=== PATIENT | male | born 1950 | race Hispanic/Latino ===

== ENCOUNTER 2016-11-28 14:48 | Emergency (ER) | payer BC, OTHER ==
[2016-11-28 15:06] VITALS: RESP 18; O2SAT 97
[2016-11-28] MEDS ORDERED: Sodium Chloride 0.9% 1,000 ML IV ONE (15:25)
[2016-11-28] MEDS ORDERED: Sodium Chloride 0.9% 1,000 ML ONE (15:36)
[2016-11-28 15:56] LABS: BASO # 0.1 K/uL (0.0-0.2); BASO % 0.8 % (0.0-2.0); EOS # 0.1 K/uL (0.0-0.7); EOS % 1.1 % (0.0-4.0); HEMATOCRIT 43.4 % (35.0-51.0); LYMPH # 2.1 K/uL (1.0-4.3); LYMPH % 29.4 % (20.0-40.0); MEAN CORPUSCULAR HEMOGLOBIN 30.2 pg (27.0-31.0); MEAN CORPUSCULAR HGB CONC 33.5 g/dL (33.0-37.0); MEAN PLATELET VOLUME 8.7 fL (7.2-11.7); MONO # 0.4 K/uL (0.0-0.8); MONO % 5.8 % (0.0-10.0); RED CELL DISTRIBUTION WIDTH 13.5 % (11.5-14.5); WHITE BLOOD COUNT 7.1 K/uL (4.8-10.8)
[2016-11-28 16:02] LABS: CHLORIDE 99 mmol/L (98-107); POTASSIUM 3.8 mmol/L (3.6-5.2); SODIUM 138 mmol/L (132-148)
[2016-11-28 16:04] LABS: ALB/GLOB RATIO 1.6 (1.0-2.1); AST/SGOT 27 U/L (17-59); BILIRUBIN,TOTAL 0.8 mg/dL (0.2-1.3); BLOOD UREA NITROGEN 9 mg/dL (9-20); CARBON DIOXIDE 23 mmol/L (22-30); GFR AFRICAN-AMERICAN > 60; TOTAL PROTEIN 7.3 g/dL (6.3-8.3)
[2016-11-28 16:05] LABS: ALKALINE PHOSPHATASE 61 U/L (38-126); ALT/SGPT 35 U/L (21-72); CALCIUM 9.2 mg/dl (8.6-10.4); GLUCOSE,RANDOM 95 mg/dL (75-110)
[2016-11-28 16:06] LABS: URINE BILIRUBIN NEGATIVE (NEGATIVE); URINE BLOOD NEGATIVE (NEGATIVE); URINE COLOR Straw (YELLOW); URINE GLUCOSE (UA) NORMAL (Normal); URINE KETONE NEGATIVE (NEGATIVE); URINE LEUKOCYTE ESTERASE NEG Leu/uL (Negative); URINE PROTEIN NEGATIVE (NEGATIVE); URINE UROBILINOGEN NORMAL mg/dL (0.2-1.0)
--- NOTE | 2016-11-28 16:06 | C.PDOC ---
History Of Present Illness 66-year-old male, PMHx includes Renal stones and BPH, presents to the emergency department with complaints of left sided flank pain, that radiates to the right abdomen for 1 week. Patent states he was seen in office by Dr Barajas, who did an ultrasound, and confirmed a kidney stone. States he had an X-ray as well, for which he was going to follow up with Dr Barajas in office next week. Patient reports that pain worsened resulting in him coming to the ED for further evaluation. Denies nausea/vomiting, diarrhea, dizziness, fevers, chills , shortness of breath, chest pain, or any other associated symptoms. No other complaints at this time. Time Seen by Provider: 11/28/16 15:16 Chief Complaint (Nursing): Male Genitourinary History Per: Patient History/Exam Limitations: no limitations Onset/Duration Of Symptoms: Days Current Symptoms Are (Timing): Still Present Past Medical History Reviewed: Historical Data, Nursing Documentation, Vital Signs Vital Signs: Last Vital Signs Temp 97.7 F 11/28/16 19:31 Pulse 62 11/28/16 19:31 Resp 18 11/28/16 19:31 BP 128/82 11/28/16 19:31 Pulse Ox 97 11/28/16 19:31 - Medical History PMH: Benign Prostatic Hyperplasia, Kidney Stones Family History: States: Unknown Family Hx - Social History Hx Tobacco Use: No Hx Alcohol Use: No Hx Substance Use: No - Immunization History Hx Tetanus Toxoid Vaccination: Yes Hx Influenza Vaccination: Yes Hx Pneumococcal Vaccination: Yes Review Of Systems Except As Marked, All Systems Reviewed And Found Negative. Constitutional: Negative for: Fever, Chills Cardiovascular: Negative for: Chest Pain, Palpitations Respiratory: Negative for: Cough, Shortness of Breath Gastrointestinal: Positive for: Abdominal Pain Genitourinary: Negative for: Hematuria Musculoskeletal: Positive for: Back Pain Skin: Negative for: Rash Neurological: Negative for: Weakness, Numbness, Headache, Dizziness Physical Exam - Physical Exam Appears: Non-toxic, No Acute Distress Skin: Warm, Dry, No Rash Head: Atraumatic, Normacephalic Eye(s): bilateral: Normal Inspection, EOMI Nose: Normal Oral Mucosa: Moist Lips: Normal Appearing Neck: Normal ROM Cardiovascular: Rhythm Regular Respiratory: Normal Breath Sounds, No Accessory Muscle Use Gastrointestinal/Abdominal: Soft, No Tenderness, No Guarding, No Rebound Back: CVA Tenderness (left ) Extremity: Normal ROM Neurological/Psych: Oriented x3, Normal Speech ED Course And Treatment - Laboratory Results Result Diagrams: 11/28/16 15:51 11/28/16 15:51 Lab Interpretation: No Acute Changes O2 Sat by Pulse Oximetry: 97 (room air) Pulse Ox Interpretation: Normal - CT Scan/US CT A/P Other Rad Studies (CT/US): Interpreted By Me, Read By Radiologist, Radiology Report Reviewed CT/US Interpretation: EXAM: CT Abdomen and Pelvis Without Intravenous Contrast. CLINICAL HISTORY: 66 years old, male; Pain; Abdominal pain; Flank; Left; Additional info: Left flank pain. TECHNIQUE: Axial computed tomography images of the abdomen and pelvis without intravenous contrast. This. CT exam was performed using one or more of the following dose reduction techniques: automated. exposure control, adjustment of the mA and/or kV according to patient size, and/or use of iterative. reconstruction technique. Coronal and sagittal reformatted images were created and reviewed. COMPARISON: CT - ABD PELVIS W/O PO OR IV CONT 04/03/2015 8:19:15 AM. FINDINGS: Artifacts: Motion artifact does moderately limit the sensitivity of this examination. Lower thorax: There are multiple punctate pulmonary parenchymal calcifications, consistent with. remote granulomatous organism exposure. Lung bases otherwise clear. ABDOMEN: Liver: There is a diffuse mild decrease in hepatic parenchymal density, consistent with mild fatty. infiltration. There are no focal liver lesions present. Gallbladder and bile ducts: The gallbladder is normal. Pancreas: The pancreas appears normal. No ductal dilation. Spleen: The spleen is normal. Adrenals: Unremarkable. No mass. Kidneys and ureters: There is mild inflammatory perinephric stranding. A simple cyst is identified in. the patient's left kidney. The cyst measures 8 cm. Multiple small nonobstructing stones in the left. kidney are present. The right kidney appears normal Stomach and bowel: The stomach is normal. Bowel loops appear within normal limits, no signs of. wall thickening, mucosal edema, or bowel distention. There is no evidence of intestinal perforation or. obstruction. Mild diverticulosis is present in the sigmoid and descending colon. Appendix: The appendix is not definitively visualized. However, no secondary signs of appendicitis. are present. PELVIS: Bladder: Unremarkable. No stones. Reproductive: Prostate is prominent, measuring approximately 6.4 x 6.1 cm. ABDOMEN and PELVIS: Intraperitoneal space: Unremarkable. No free air. No significant fluid collection. Bones/joints: No acute fracture. No dislocation. Soft tissues: Fat-containing right inguinal hernia is present. Vasculature: The aorta demonstrates moderate atherosclerotic calcification. No abdominal aortic. aneurysm. Lymph nodes: Unremarkable. No enlarged lymph nodes. IMPRESSION: No acute process in the abdomen and pelvis. Mild diverticulosis. Nonvisualization of the appendix. Left nephrolithiasis. Simple left renal cyst. Calcified granuloma of the right middle lobe, and right. base. Mild fatty infiltration of the liver. The prostate appears prominent in size likely representing benign prostatic hypertrophy. Correlation. with PSA level if clinically warranted. Medical Decision Making Medical Decision Making: Impression: Left low back pain secondary to kidney stone. Of note patient was hesitant to CT scan, because he has had several in the past, most recent was 6 months as per pt. Plan: * CMP * CBC * IVF, Toradol * Urine Culture * Urinalysis Progress: [address] Jessica Barajas who recommends CT scan and to call back with results. He does also state that he will be away next week for holiday. [address] Barajas and discussed CT results. Advised follow up in office next week. Disposition Counseled Patient/Family Regarding: Diagnosis, Need For Followup, Rx Given - Disposition Referrals: Jessica Barajas MD [Staff Provider] - Disposition: HOME/ ROUTINE Disposition Time: 18:55 Condition: SERIOUS Additional Instructions: Please follow up with Dr Barajas in office one week Take medications as needed for any pain Return to the emergency department at any time if symptoms persist or worsen. Prescriptions: Ibuprofen [Motrin] 600 mg PO Q8 #30 tab traMADol [Ultram] 50 mg PO Q8 #20 tab Instructions: Renal Colic (ED) - POA Present On Arrival: None - Clinical Impression Clinical Impression: Renal colic - PA / FLOOR CARE TECHNICIAN / Resident Statement MD/DO has reviewed & agrees with the documentation as recorded. - Scribe Statement The provider has reviewed the documentation as recorded by the Scribe (Jyoti Milton) All medical record entries made by the Scribe were at my direction and personally dictated by me. I have reviewed the chart and agree that the record accurately reflects my personal performance of the history, physical exam, medical decision making, and the department course for this patient. I have also personally directed, reviewed, and agree with the discharge instructions and disposition.
[2016-11-28 19:32] VITALS: BP 128/82; PULSE 62; TEMP 97.7
--- NOTE | 2016-11-29 09:38 | CT ---
PROCEDURE: CT Abdomen and Pelvis without intravenous contrast HISTORY: left flank pain COMPARISON: None. TECHNIQUE: Multiple contiguous axial images were performed through the abdomen and pelvis without the use of intravenous contrast. Subsequently, sagittal coronal reformatted images were obtained. Radiation dose: Total exam DLP = 1012 mGy-cm. This CT exam was performed using one or more of the following dose reduction techniques: Automated exposure control, adjustment of the mA and/or kV according to patient size, and/or use of iterative reconstruction technique. FINDINGS: LOWER THORAX: Multiple punctate pulmonary nodules/parenchymal calcifications suggestive for granulomatous changes: For example in the right middle lobe there is a 5.8 millimeter nodule, and in the right lower lobe there is a 2.3 millimeter subpleural nodule. Additional 4 millimeter calcified granuloma at the medial right lower lobe. LIVER: Fatty infiltration of the liver. GALLBLADDER AND BILE DUCTS: Unremarkable. PANCREAS: Unremarkable. No gross lesion or ductal dilatation. SPLEEN: Unremarkable. ADRENALS: Unremarkable. No mass. KIDNEYS AND URETERS: Mild inflammatory perinephric fat stranding. Cyst seen within the left kidney emanating from the mid to lower pole measures up to 7.5 centimeters demonstrating a Hounsfield unit attenuation of 2. There may be a few punctate peripheral calcifications of the cyst seen at the superior aspect of the cyst near the midpole of the kidney. Multiple nonobstructive calculi in the mid to lower pole of the left kidney for example in the midpole, several calculi measure up to 3 millimeters. VASCULATURE: Unremarkable. No aortic aneurysm. BOWEL: Diverticulosis. Most prominent in the sigmoid and descending colon. Mild thickening versus underdistention of the left hemicolon. APPENDIX: Not well visualized. PERITONEUM: Unremarkable. No free fluid. No free air. LYMPH NODES: Unremarkable. No enlarged lymph nodes. BLADDER: Mild thickening of the urinary bladder wall. REPRODUCTIVE: Prominent prostate measuring 6.4 x 6.1 centimeters. Few internal calcifications. BONES: No acute fracture. OTHER FINDINGS: Motion artifact somewhat limits evaluation of this examination. Fat containing right inguinal hernia. Moderate atherosclerotic calcification in the aorta. IMPRESSION: Mild underdistention versus mild thickening of the left hemicolon. Clinical correlation. Diverticulosis. Left nephrolithiasis. Left renal cyst with question punctate peripheral calcifications. Calcified nodule/granuloma in the right lung as described. Fatty infiltration of the liver. Prominent prostate which may represent benign prostatic hypertrophy. Clinical correlation. Mild thickening of the urinary bladder wall. Clinical correlation. These findings were preliminarily reported at 5:57 p.m. on 11/28/[address] George Fu from [facility].
== END 2016-11-28 19:20 | disposition home or self-care (01) ==
LOC: C.ER 14:48
DX: N20.0 Calculus of kidney (principal); Z87.442 Personal history of urinary calculi
CPT/HCPCS: 74176; 80053; 81001; 85025; 87086; 96361; 96374; 99284; J1885; J7040